=== PATIENT | male | born 1985 | race Caucasian/White ===

== ENCOUNTER 2021-05-13 11:04 | Emergency (ER) | payer MEDICAID ==
[~2021-05-13] VITALS: Ht 170.2 cm; Wt 100.0 kg
[2021-05-13 11:11] VITALS: BP 120/76
[2021-05-13] MEDS ORDERED: TC1U15 TP (11:58)
== END 2021-05-13 12:18 | disposition home or self-care (01) ==
LOC: ER 11:04
DX: L25.9 Unspecified contact dermatitis, unspecified cause (principal)
CPT/HCPCS: 99282